=== PATIENT | male | born 1985 | race Caucasian/White ===

== ENCOUNTER 2017-10-20 13:44 | Emergency (ER) | payer SELFPAY ==
[~2017-10-20] VITALS: Ht 180.3 cm; Wt 68.2 kg
[2017-10-20 13:45] VITALS: BP 157/87; PULSE 75; RESP 14; TEMP 98; O2SAT 99
--- NOTE | 2017-10-20 15:52 | RADRPT ---
EXAM DATE/TIME: 10/20/2017 15:11 [facility] COMPARISON: No previous studies available for comparison. INDICATIONS : Hit leg on trailer hitch pain medial side. Swelling MEDICAL HISTORY : None. SURGICAL HISTORY : None. ENCOUNTER: Initial ACUITY: 2 days PAIN SCORE: 6/10 LOCATION: Left Tibia FINDINGS: No retained foreign body or acute fracture is seen. Note is made of an enthesophyte projecting off th e posterior aspect of the tibia. CONCLUSION: 1. No acute bony abnormality identified. No retained foreign body. Kareem Stein MD on October 20, 2017 at 15:49 Board Certified Radiologist. This report was verified electronically.
[2017-10-20] MEDS ORDERED: IBUP1TAB5 PO (16:28)
--- NOTE | 2017-10-20 16:43 | PD ---
HPI Chief Complaint: Injury Time Seen by Provider: 16:25 Travel History International Travel<30 days: No Contact w/Intl Traveler<30days: No Traveled to known affect area: No History of Present Illness HPI 32-year-old male here with left lower leg pain. He reports that 2 days ago he was loading a trailer when he accidentally hit the trailer hitch with his left lower leg. He now has pain and bruising to the anterior left lower pretibial region. Pain is moderate, worse with walking, no alleviating factors. No other complaints. PFSH Social History Alcohol Use: No Tobacco Use: Yes Substance Use: No Allergies-Medications (Allergen,Severity, Reaction): Coded Allergies: No Known Allergies (Verified Allergy, Unknown, 10/20/17) Reported Meds & Prescriptions Reported Meds & Active Scripts Active Reported Ibuprofen 400 Mg Tab 400 Mg PO TID Review of Systems General / Constitutional: No: Fever, Chills Musculoskeletal: Positive: Pain Skin: Positive Other (positive for bruising) Physical Exam Narrative GENERAL: Well-nourished male in no acute distress SKIN: Warm and dry. CARDIOVASCULAR: Regular rate and rhythm. No murmur appreciated. RESPIRATORY: No accessory muscle use. Clear to auscultation. Breath sounds equal bilaterally. MUSCULOSKELETAL: No obvious deformities. Contusion to the left lower leg which is tender to palpation. NEUROLOGICAL: Awake and alert. No obvious cranial nerve deficits. Motor grossly within normal limits. Normal speech. Data Data Last Documented VS Vital Signs Date Time Temp Pulse Resp B/P (MAP) Pulse Ox O2 Delivery O2 Flow Rate FiO2 10/20/17 13:45 98.0 75 14 157/87 (110) 99 Orders Orders Tibia/Fibula (Ap/Lat) (10/20/17 ) Ed Discharge Order (10/20/17 16:40) MDM Medical Decision Making Medical Screen Exam Complete: Yes Emergency Medical Condition: Yes Medical Record Reviewed: Yes Differential Diagnosis Contusion, fracture, sprain Narrative Course X-ray of the lower leg is negative. The patient appears to have a contusion. He'll be discharged with crutches. Diagnosis Primary Impression: Contusion of left lower leg Additional Instructions: Ice the affected area several times a day 15 minutes at time. Tylenol or Motrin for pain. Follow-up with primary care physician. Return for any emergent medical conditions. Med/Other Pt SpecificInfo: Orthopedic Instructions Disposition: 01 DISCHARGE HOME Condition: Williams Chen Oct 20, 2017 16:43
== END 2017-10-20 16:51 | disposition home or self-care (01) ==
LOC: NEPK 13:44
DX: S80.12XA Contusion of left lower leg, initial encounter (principal); W22.8XXA Striking against or struck by other objects, initial encounter; Y93.89 Activity, other specified; Z72.0 Tobacco use
CPT/HCPCS: 73590; 99283; E0113

== ENCOUNTER 2017-10-25 10:47 | Emergency (ER) | payer SELFPAY ==
[~2017-10-25] VITALS: Ht 177.8 cm; Wt 70.0 kg
[~2017-10-25 10:47] MED LIST: IBUP1TAB5 PO
[2017-10-25 11:00] VITALS: BP 108/57; PULSE 81; RESP 20; TEMP 97.4; O2SAT 100
[2017-10-25] MEDS ORDERED: CLINDAMYCIN 600 MG/NS PREMIX 50 ML IV ONE (11:15)
[2017-10-25] MEDS ORDERED: KETOROLAC TROMETHAMINE 30 MG/ML (IVP) VIAL IV PUSH ONE (11:15)
[2017-10-25] MEDS ORDERED: SODIUM CHLOR 0.9% 1000 ML INJ 1,000 ML IV ONE (11:15)
[2017-10-25] MEDS ORDERED: CIPROFLOXACIN 400 MG PREMIX 200 ML IV ONE (11:15)
[2017-10-25 11:30] LABS: AUTOMATED NEUTROPHIL # 6.8 TH/MM3 (1.8-7.7); BASOPHIL % 0.3 % (0.0-2.0); EOSINOPHIL # 0.1 TH/MM3 (0-0.4); EOSINOPHIL % 0.6 % (0.0-4.0); HEMATOCRIT 40.5 % (39.0-51.0); HEMOGLOBIN 14.1 GM/DL (13.0-17.0); LYMPH % 14.7 % (9.0-44.0); LYMPHOCYTE # 1.3 TH/MM3 (1.0-4.8); MEAN CELL VOLUME 84.1 FL (80.0-100.0); MEAN CORPUSCULAR HEMOGLOBIN 29.3 PG (27.0-34.0); MEAN CORPUSCULAR HGB CONC 34.9 % (32.0-36.0); MEAN PLATELET VOLUME 6.6 FL (7.0-11.0); MONOCYTE # 0.5 TH/MM3 (0-0.9); NEUT % 78.4 % (16.0-70.0); PLATELET COUNT 452 TH/MM3 (150-450); RED BLOOD COUNT 4.81 MIL/MM3 (4.50-5.90); RED CELL DISTRIBUTION WIDTH 14.4 % (11.6-17.2); WHITE BLOOD COUNT 8.7 TH/MM3 (4.0-11.0)
--- NOTE | 2017-10-25 11:31 | RADRPT ---
EXAM DATE/TIME: 10/25/2017 11:15 [facility] COMPARISON: No previous studies available for comparison. INDICATIONS : Left foot pain; puncture wound on bottom of foot. MEDICAL HISTORY : None. SURGICAL HISTORY : None. ENCOUNTER: Initial ACUITY: 1 week PAIN SCORE: 9/10 LOCATION: Bilateral chest FINDINGS: Three view examination of the left foot demonstrates no soft tissue swelling, dislocation, or fractur e. The tarsal bones appear intact. The interphalangeal and metatarsophalangeal joints are intact. The calcaneus is intact. Bony mineralization is normal. CONCLUSION: Negative exam. Osseous structures are intact. No radiopaque foreign body identified. Bull Calloway MD on October 25, 2017 at 11:28 Board Certified Radiologist. This report was verified electronically.
--- NOTE | 2017-10-25 11:35 | PD ---
HPI Chief Complaint: Injury Time Seen by Provider: 10:54 Travel History International Travel<30 days: No Contact w/Intl Traveler<30days: No Traveled to known affect area: No History of Present Illness HPI The patient is a 32-year-old male who presents to the emergency department for left foot pain and left leg pain. The patient states he struck his left lower extremity on a trailer approximately 5 days ago. He was seen in the emergency department and had an x-ray which was negative. However, he notes some bruising over the affected area and continuing pain. He now notes a puncture wound on the bottom of the left foot, is unsure if he stepped on any foreign bodies, complains of increasing pain. The patient states he was on his way to [facility] for detox, he states he takes benzodiazepines and opiates, denies any IV drug use. He denies any fever, chills, or sweats. Symptoms are moderate. Last tetanus shot was one year ago. He denies any fever , chills, or sweats. He denies any significant redness to lower extremity. PFSH Past Medical History Psychiatric: Yes (drug addiction) Tetanus Vaccination: < 5 Years Influenza Vaccination: No ?: Not Past Surgical History Surgical History: No Previous Surgery Social History Alcohol Use: No Tobacco Use: Yes (1 ppd) Substance Use: No (benzos, opiates ) Allergies-Medications (Allergen,Severity, Reaction): Coded Allergies: No Known Allergies (Verified Allergy, Unknown, 10/25/17) Reported Meds & Prescriptions Reported Meds & Active Scripts Active No Active Prescriptions or Reported Medications Review of Systems Except as stated in HPI: all other systems reviewed are Neg General / Constitutional: No: Fever, Chills Musculoskeletal: Positive: Edema, Pain Skin: Positive Other Neurologic: No: Paresthesia, Sensory Disturbance Psychiatric: Positive: Substance Abuse Endocrine: No: Other (denies any history of diabetes) Hematologic/Lymphatic: No: Other (denies any history HIV) Physical Exam Narrative GENERAL: Awake, alert, 32-year-old male who appears his stated age and is in no acute respiratory distress. SKIN: Focused skin assessment warm/dry. HEAD: Atraumatic. Normocephalic. EYES: Pupils equal and round. No scleral icterus. No injection or drainage. ENT: No nasal bleeding or discharge. Mucous membranes pink and moist. NECK: Trachea midline. No JVD. CARDIOVASCULAR: Regular rate and rhythm. No murmur appreciated. RESPIRATORY: No accessory muscle use. Clear to auscultation. Breath sounds equal bilaterally. GASTROINTESTINAL: Abdomen soft, non-tender, nondistended. Hepatic and splenic margins not palpable. MUSCULOSKELETAL: Left lower extremity does reveal some ecchymosis and old appearing contusion on the left lower extremity, distal one third of the tibia and involvement of the lateral fibula. No tenderness over the medial lateral malleus. Puncture wound over the left mid forefoot, tender, but no palpable abscess. No erythema noted. Positive dorsalis pedal pulse. Patient is able flex and extend the left lower extremity. NEUROLOGICAL: Awake and alert. No obvious cranial nerve deficits. Motor grossly within normal limits. Normal speech. PSYCHIATRIC: Anxious. Data Data Last Documented VS Vital Signs Date Time Temp Pulse Resp B/P (MAP) Pulse Ox O2 Delivery O2 Flow Rate FiO2 10/25/17 11:00 97.4 81 20 108/57 (74) 100 Room Air Orders Orders Tibia/Fibula (Ap/Lat) (10/25/17 ) Complete Blood Count With Diff (10/25/17 11:01) Comprehensive Metabolic Panel (10/25/17 11:01) Lactic Acid (10/25/17 11:01) Blood Culture (10/25/17 11:01) Ketorolac Inj (Toradol Inj) (10/25/17 11:15) Sodium Chlor 0.9% 1000 Ml Inj (Ns 1000 M (10/25/17 11:15) Ciprofloxacin 400 Mg Premix (Cipro 400 M (10/25/17 11:15) Clindamycin 600 Mg/Ns Premix (Cleocin 60 (10/25/17 11:15) Foot, Complete ([id number]) (10/25/17 ) Labs Laboratory Tests Test 10/25/17 11:05 White Blood Count 8.7 TH/MM3 Red Blood Count 4.81 MIL/MM3 Hemoglobin 14.1 GM/DL Hematocrit 40.5 % Mean Corpuscular Volume 84.1 FL Mean Corpuscular Hemoglobin 29.3 PG Mean Corpuscular Hemoglobin Concent 34.9 % Red Cell Distribution Width 14.4 % Platelet Count 452 TH/MM3 Mean Platelet Volume 6.6 FL Neutrophils (%) (Auto) 78.4 % Lymphocytes (%) (Auto) 14.7 % Monocytes (%) (Auto) 6.0 % Eosinophils (%) (Auto) 0.6 % Basophils (%) (Auto) 0.3 % Neutrophils # (Auto) 6.8 TH/MM3 Lymphocytes # (Auto) 1.3 TH/MM3 Monocytes # (Auto) 0.5 TH/MM3 Eosinophils # (Auto) 0.1 TH/MM3 Basophils # (Auto) 0.0 TH/MM3 CBC Comment DIFF FINAL Differential Comment Blood Urea Nitrogen 12 MG/DL Creatinine 1.21 MG/DL Random Glucose 118 MG/DL Total Protein 8.2 GM/DL Albumin 3.8 GM/DL Calcium Level 9.1 MG/DL Alkaline Phosphatase 77 U/L Aspartate Amino Transf (AST/SGOT) 22 U/L Alanine Aminotransferase (ALT/SGPT) 24 U/L Total Bilirubin 0.5 MG/DL Sodium Level 138 MEQ/L Potassium Level 4.3 MEQ/L Chloride Level 105 MEQ/L Carbon Dioxide Level 25.8 MEQ/L Anion Gap 7 MEQ/L Estimat Glomerular Filtration Rate 70 ML/MIN Lactic Acid Level 1.6 mmol/L MDM Medical Decision Making Medical Screen Exam Complete: Yes Emergency Medical Condition: Yes Medical Record Reviewed: Yes Interpretation(s) Last Impressions Tibia/Fibula X-Ray 10/25/17 0000 Signed Impressions: Service Date/Time: Wednesday, October 25, 2017 11:12 - CONCLUSION: No acute abnormality. James Eubanks Jr., MD Foot X-Ray 10/25/17 0000 Signed Impressions: Service Date/Time: Wednesday, October 25, 2017 11:15 - CONCLUSION: Negative exam. Osseous structures are intact. No radiopaque foreign body identified. Bull Calloway MD Laboratory Tests Test 10/25/17 11:05 White Blood Count 8.7 TH/MM3 Red Blood Count 4.81 MIL/MM3 Hemoglobin 14.1 GM/DL Hematocrit 40.5 % Mean Corpuscular Volume 84.1 FL Mean Corpuscular Hemoglobin 29.3 PG Mean Corpuscular Hemoglobin Concent 34.9 % Red Cell Distribution Width 14.4 % Platelet Count 452 TH/MM3 Mean Platelet Volume 6.6 FL Neutrophils (%) (Auto) 78.4 % Lymphocytes (%) (Auto) 14.7 % Monocytes (%) (Auto) 6.0 % Eosinophils (%) (Auto) 0.6 % Basophils (%) (Auto) 0.3 % Neutrophils # (Auto) 6.8 TH/MM3 Lymphocytes # (Auto) 1.3 TH/MM3 Monocytes # (Auto) 0.5 TH/MM3 Eosinophils # (Auto) 0.1 TH/MM3 Basophils # (Auto) 0.0 TH/MM3 CBC Comment DIFF FINAL Differential Comment Blood Urea Nitrogen 12 MG/DL Creatinine 1.21 MG/DL Random Glucose 118 MG/DL Total Protein 8.2 GM/DL Albumin 3.8 GM/DL Calcium Level 9.1 MG/DL Alkaline Phosphatase 77 U/L Aspartate Amino Transf (AST/SGOT) 22 U/L Alanine Aminotransferase (ALT/SGPT) 24 U/L Total Bilirubin 0.5 MG/DL Sodium Level 138 MEQ/L Potassium Level 4.3 MEQ/L Chloride Level 105 MEQ/L Carbon Dioxide Level 25.8 MEQ/L Anion Gap 7 MEQ/L Estimat Glomerular Filtration Rate 70 ML/MIN Lactic Acid Level 1.6 mmol/L Differential Diagnosis Differential diagnosis includes contusion, hematoma, fracture, compartment syndrome, puncture wound, infected wound, abscess, cellulitis. Narrative Course IV was established, labs are drawn and sent, and the patient was placed on cardiac telemetry monitoring and continuous pulse oximetry monitoring. X-ray left foot was obtained to rule out foreign body. X-ray of the left tibia/ fibular was obtained. The patient received Cipro and clindamycin intravenously and was administered Toradol 30 mg intravenously for pain. White count is unremarkable. Lactic acid is normal. X-ray reveals no foreign body or fracture. The patient will be placed on clindamycin and Cipro as well as ibuprofen for pain. He is advised to follow-up with his primary physician, warm soaks, activity as tolerated. Diagnosis Primary Impression: Left leg pain Additional Impression: Puncture wound of left foot Qualified Codes: S91.332A - Puncture wound without foreign body, left foot, initial encounter Patient Instructions: General Instructions Additional Instructions: Please provide a patient a copy of his labs and x-ray results at discharge. Follow-up with her primary physician. Return if symptoms worsen or progress. Med/Other Pt SpecificInfo: Prescription(s) given Scripts Ibuprofen (Ibuprofen) 600 Mg Tab 600 MG PO Q6H Y for Pain/Inflammation, #20 TAB 0 Refills Prov: Jordan Burns MD 10/25/17 Clindamycin (Cleocin) 150 Mg Cap 150 MG PO Q6H for Infection for 7 Days, #28 CAP 0 Refills Prov: Jordan Burns MD 10/25/17 Ciprofloxacin (Cipro) 500 Mg Tab 500 MG PO BID for Infection for 7 Days, #14 TAB 0 Refills Prov: Jordan Burns MD 10/25/17 Disposition: 01 DISCHARGE HOME Condition: Stable Jordan Burns MD Oct 25, 2017 11:35
--- NOTE | 2017-10-25 11:39 | RADRPT ---
EXAM DATE/TIME: 10/25/2017 11:12 [facility] COMPARISON: TIBIA/FIBULA LEFT (AP/LAT), October 20, 2017, 15:11. INDICATIONS : Left lower leg pain and swelling; hit leg on trailer hitch. MEDICAL HISTORY : None. SURGICAL HISTORY : None. ENCOUNTER: [facility] ACUITY: 1 week PAIN SCORE: 8/10 LOCATION: Left lower leg. FINDINGS: Two view examination of the left tibia demonstrates no evidence of fracture or dislocation. An exosto sis is seen protruding posteriorly from the proximal tibial metaphysis. No irregularity to the tip of this. Bony mineralization is normal. The soft tissue structures are intact. CONCLUSION: No acute abnormality. James Eubanks Jr., MD on October 25, 2017 at 11:29 Board Certified Radiologist. This report was verified electronically.
[2017-10-25 11:45] LABS: ALBUMIN 3.8 GM/DL (3.4-5.0); AST (GOT) 22 U/L (15-37); BICARBONATE 25.8 MEQ/L (21.0-32.0); BLOOD UREA NITROGEN 12 MG/DL (7-18); CALCIUM 9.1 MG/DL (8.5-10.1); CHLORIDE 105 MEQ/L (98-107); CREATININE 1.21 MG/DL (0.60-1.30); GLOMERULAR FILTRATION RATE 70 ML/MIN (>89); GLUCOSE,RANDOM 118 MG/DL (74-106); SODIUM (NA) 138 MEQ/L (136-145)
[2017-10-25 11:46] LABS: ALT (GPT) 24 U/L (12-78)
[2017-10-25 11:48] LABS: ALKALINE PHOSPHATASE 77 U/L (45-117); TOTAL BILIRUBIN ADULT 0.5 MG/DL (0.2-1.0); TOTAL PROTEIN 8.2 GM/DL (6.4-8.2)
[2017-10-25] MEDS ORDERED: CIPR-9 PO (12:40)
[2017-10-25] MEDS ORDERED: IBUP-232 PO (12:40)
[2017-10-25] MEDS ORDERED: CLIN150 PO (12:40)
== END 2017-10-25 13:52 | disposition home or self-care (01) ==
LOC: NEPE 10:47
DX: S91.332A Puncture wound without foreign body, left foot, initial encounter (principal); M79.605 Pain in left leg; F17.210 Nicotine dependence, cigarettes, uncomplicated; W22.8XXA Striking against or struck by other objects, initial encounter
CPT/HCPCS: 73590; 73630; 80053; 83605; 85025; 87040; 96365; 96367; 96375; 99284; J0744; J1885; J7030

== ENCOUNTER 2017-12-19 18:24 | Emergency (ER) | payer SELFPAY ==
[~2017-12-19] VITALS: Ht 177.8 cm; Wt 63.6 kg
[~2017-12-19 18:24] MED LIST changes: +CIPR-9 PO; +CLIN150 PO; +IBUP-232 PO; -IBUP1TAB5 PO
[2017-12-19 18:31] VITALS: BP 129/68; PULSE 85; RESP 20; TEMP 98.2; O2SAT 99
[2017-12-20 04:40] VITALS: BP 128/80; PULSE 72; RESP 16; TEMP 98.1; O2SAT 99
[2017-12-20] MEDS ORDERED: CEPH-460 PO (04:48)
--- NOTE | 2017-12-20 04:48 | PD ---
HPI Chief Complaint: Medical Clearance Time Seen by Provider: 04:42 Travel History International Travel<30 days: No Contact w/Intl Traveler<30days: No Traveled to known affect area: No History of Present Illness HPI Patient is a 32 year old male who comes in because he is concerned about sores on his left hand. He says they have been there for several days and he thought they were getting better, but they got worse. 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 He says the wound on his left third finger is particularly bothersome and he reports swelling of the area. He denies fever or chills. He denies any other complaints. PFSH Past Medical History Psychiatric: Yes (drug addiction) Immunizations Current: Yes Tetanus Vaccination: < 5 Years Influenza Vaccination: No Social History Alcohol Use: No Tobacco Use: Yes (1 ppd) Substance Use: No (benzos, opiates ) Allergies-Medications (Allergen,Severity, Reaction): Coded Allergies: No Known Allergies (Verified Allergy, Unknown, 12/20/17) Reported Meds & Prescriptions Reported Meds & Active Scripts Active Review of Systems General / Constitutional: No: Fever, Chills HENT: No: Headaches, Lightheadedness Cardiovascular: No: Chest Pain or Discomfort Respiratory: No: Shortness of Breath Gastrointestinal: No: Nausea, Vomiting Musculoskeletal: Positive: Pain Skin: Positive Lesions Neurologic: No: Weakness, Dizziness Physical Exam Narrative GENERAL: Awake and alert, in no acute distress. SKIN: 3 small healing wound to the dorsal side of the left hand. There is a small wound to the right third distal finger it is mildly erythematous. There is no fluctuance or drainage. HEAD: Atraumatic. Normocephalic. EYES: Pupils equal and round. No scleral icterus. ENT: No nasal bleeding or discharge. Mucous membranes pink and moist. CARDIOVASCULAR: Regular rate and rhythm. No murmur appreciated. RESPIRATORY: No accessory muscle use. Clear to auscultation. Breath sounds equal bilaterally. MUSCULOSKELETAL: No obvious deformities. No clubbing. No cyanosis. No edema. NEUROLOGICAL: Awake and alert. No obvious cranial nerve deficits. Motor grossly within normal limits. Normal speech. PSYCHIATRIC: Appropriate mood and affect; insight and judgment normal. Data Data Last Documented VS Vital Signs Date Time Temp Pulse Resp B/P (MAP) Pulse Ox O2 Delivery O2 Flow Rate FiO2 12/20/17 04:40 98.1 72 16 128/80 (96) 99 Room Air MDM Medical Decision Making Medical Screen Exam Complete: Yes Emergency Medical Condition: Yes Medical Record Reviewed: Yes Differential Diagnosis Healing wounds versus cellulitis versus insect bites Narrative Course Patient is a 32-year-old male who comes in because he is concerned about wounds on his hand. Exam shows small healing wounds to the left hand, one appears mildly infected. He will be given a prescription for Keflex. He is advised to follow-up with a primary care doctor. Advised return to the ED as needed for any worsening symptoms. Diagnosis Primary Impression: Wounds, multiple Patient Instructions: Acute Wounds (ED), General Instructions Additional Instructions: Keep your wounds clean and dry. Take all of your antibiotic. Follow-up with a primary care doctor. Return to the ED as needed for any worsening symptoms. Scripts Cephalexin (Keflex) 500 Mg Cap 500 MG PO Q6H for Infection for 7 Days, #28 CAP 0 Refills Prov: Mary Sommer MD 12/20/17 Disposition: 01 DISCHARGE HOME Condition: Stable Mary Sommer MD Dec 20, 2017 04:48
== END 2017-12-20 05:19 | disposition home or self-care (01) ==
LOC: NEPE 18:24
DX: L98.8 Other specified disorders of the skin and subcutaneous tissue (principal)
CPT/HCPCS: 99283